=== PATIENT | female | born 1930 | race Caucasian/White ===

== ENCOUNTER → 2016-07-16 | Outpatient (CLI) | payer MEDICARE, OTHER ==
[~2016-07-16] MED LIST: AMLO5TAB2 PO; ASPI1TAB69 PO; ASPI81TA11 PO; ATOR10TA15 PO; AUGM500T7 PO; BIOT1000 PO; CALC1TAB30 PO; CALC1TAB87 PO; CEFT500T3 PO; CICL8KIT2 TOPICAL; CIPR-9 PO; CYMB60CA PO; ESTR0.62 VAGINAL; FERR324T4 PO; FERR325T PO; FISH1000 PO; GABA600T PO; GLIM4TAB PO; LANTUS2P SQ; LATA0.002 EACH EYE; LEVEMIR SQ; MEDR4PAK PO; META0.52 PO; METF500T PO; METO100T PO; METR1GEL TOPICAL; MIRA3350 PO; MULTTAB67 PO; OMEP20TA PO; ORPH100T99 PO; PHEN0.4T PO; PREG25 PO; RAMI5CAP PO; REST0.05 EACH EYE; SITA1TAB2 PO; SYMB160A INH; SYST0.4D2 EACH EYE; TRAM50TA PO; VENTAER INH; VITA200C3 PO; VITA400C2 PO; VITATAB11 PO
[2016-07-16 13:48] LABS: AUTOMATED NEUTROPHIL # 7.8 TH/MM3 (1.8-7.7); BASOPHIL # 0.1 TH/MM3 (0-0.2); EOSINOPHIL # 0.2 TH/MM3 (0-0.4); EOSINOPHIL % 2.2 % (0.0-4.0); HEMATOCRIT 41.5 % (35.0-46.0); HEMO FLAGS DIFF FINAL; LYMPH % 18.5 % (9.0-44.0); LYMPHOCYTE # 2.1 TH/MM3 (1.0-4.8); MEAN CELL VOLUME 88.6 FL (80.0-100.0); MEAN CORPUSCULAR HEMOGLOBIN 29.5 PG (27.0-34.0); MEAN CORPUSCULAR HGB CONC 33.3 % (32.0-36.0); MONO % 8.4 % (0.0-8.0); NEUT % 69.9 % (16.0-70.0); PLATELET COUNT 385 TH/MM3 (150-450); RED BLOOD COUNT 4.68 MIL/MM3 (4.00-5.30); RED CELL DISTRIBUTION WIDTH 13.7 % (11.6-17.2); WHITE BLOOD COUNT 11.1 TH/MM3 (4.0-11.0)
[2016-07-16 13:49] LABS: BACTERIA, URINE FEW /hpf; BLOOD, URINE LARGE (NEG); GLUCOSE,URINE 300 mg/dL (NEG); KETONE, URINE NEG (NEG); NITRITE,URINE NEG (NEG); PH, URINE 5.5 (5.0-8.5); SQUAMOUS EPITHELIAL CELL URINE 3 /hpf (0-5); URINE COLOR DARK-YELLOW (YELLW/STRAW)
[2016-07-16 13:52] LABS: COMMENT (UR) CULTURE INDICATED; CULTURE IF INDICATED CULTURE INDICATED
--- NOTE | 2016-07-17 16:08 | EKG ---
Date Performed: 07/16/2016 Time Performed: 13:09:30 PTAGE: 86 years EKG: Low voltage in precordial leads. Vertical QRS axis. Minor ST-T wave changes. When compared to previous tracing, no significant change. Abnormal ECG PREVIOUS TRACING : 05/17/2016 14.28.07 DOCTOR: Dariusz Covington Interpretating Date/Time 07/17/2016 16:07:01
== END ==
LOC: CPRE 12:43
PROVIDERS: ATTEND Pain Medicine Interventional Pain Medicine
DX: Z01.810 Encounter for preprocedural cardiovascular examination (principal); Z01.812 Encounter for preprocedural laboratory examination; M54.5 Low back pain; R94.31 Abnormal electrocardiogram [ECG] [EKG]; B37.89 Other sites of candidiasis; R82.90 Unspecified abnormal findings in urine
CPT/HCPCS: 36415; 81001; 84132; 85025; 86403; 87077; 87086; 87186; 93005; J3010

== ENCOUNTER → 2016-07-23 | Day surgery (SDC) | payer MEDICARE, OTHER ==
[~2016-07-23] VITALS: Ht 162.6 cm; Wt 79.8 kg
[~2016-07-23] MED LIST changes: +BUPIVACAINE/EPINEPHRINE 0.5% PF 30 ML VIAL ONE; -CEFT500T3 PO; +LACTATED RINGER'S 1000 ML INJ 1,000 ML ONE; +MIDAZOLAM HCL 2 MG/2 ML VIAL ONE; +PROPOFOL 200 MG/20 ML AMP IV ONE; +SODIUM CHLORIDE 0.9% INJ 100 ML ONE; +SODIUM CHLORIDE 0.9% INJ 50 ML ONE; +VANCOMYCIN 500 MG VIAL ONE; +ceFAZolin INJ 1,000 MG VIAL ONE
[2016-07-23 11:40] VITALS: BP 124/71; PULSE 66; RESP 16; TEMP 97.8; O2SAT 94
[2016-07-23 15:30] VITALS: BP 138/68; PULSE 78; RESP 18; TEMP 97.6; O2SAT 96
--- NOTE | 2016-07-24 13:14 | MP ---
cc: KRYS POTTER M.D. DATE OF SURGERY 07/23/2016 DATE OF 1930 PROCEDURE Replacement of [employer] dual-channel non-rechargeable pulse generator. PREPROCEDURE NOTE End of battery life of Medtronics dual-channel non-rechargeable pulse generator POSTPROCEDURE End of battery life of [employer]tronics dual-channel non-rechargeable pulse generator PROCEDURE NOTE IV was started in the holding area, the patient was given IV antibiotics. taken to the operating room, placed in the supine position, sedated by anesthesia. Her abdomen was prepped with Chloraprep and draped with sterile drapes. The skin over the implanted pulse generator in the left subcostal area was infiltrated with 0.5% Marcaine containing epinephrine. Then an incision was made over the pulse generator. Sharp and blunt dissection were used to exteriorize the pulse generator, then a new [employer]tronics dual-channel non-rechargeable pulse generator was connected to the two leads after disconnecting them from the old pulse generator. Impedance was checked at the bedside and found to be appropriate on all electrodes. The subcutaneous pocket was irrigated with Betadine solution, then an Ethibond suture was placed through the underlying fascia and the new pulse generator was placed in the subcutaneous pocket with the redundant lead wires behind the pulse generator and the painted side of the pulse generator facing the skin and it was sutured in place with the 2-0 Ethibond suture. Then the incision was closed with 3-0 Monocryl in the subcuticular tissue and 3-0 nylon on the skin. The incision was covered with sterile adhesive dressings and the patient was taken to the recovery room with stable vital signs neurologically intact. WMD BONI Ellis/HERLINDA /2:25 PM /1:05 PM
== END | disposition home or self-care (01) ==
LOC: CSDC 11:13
PROVIDERS: ATTEND Pain Medicine Interventional Pain Medicine
DX: T85.193A Other mechanical complication of implanted electronic neurostimulator, generator, initial encounter (principal); M54.5 Low back pain; I10 Essential (primary) hypertension; J44.9 Chronic obstructive pulmonary disease, unspecified; E11.9 Type 2 diabetes mellitus without complications
CPT/HCPCS: 00300; 63685; C1767; J0690; J2250; J3370; J7120

== ENCOUNTER 2016-10-07 07:57 | Emergency (ER) | payer MEDICARE ==
[~2016-10-07 07:57] MED LIST changes: -ASPI81TA11 PO; -AUGM500T7 PO; -BUPIVACAINE/EPINEPHRINE 0.5% PF 30 ML VIAL ONE; -CALC1TAB87 PO; -CICL8KIT2 TOPICAL; -CIPR-9 PO; -FERR324T4 PO; -LACTATED RINGER'S 1000 ML INJ 1,000 ML ONE; -LANTUS2P SQ; -LEVEMIR SQ; -MEDR4PAK PO; -METR1GEL TOPICAL; -MIDAZOLAM HCL 2 MG/2 ML VIAL ONE; -ORPH100T99 PO; -PHEN0.4T PO; -PROPOFOL 200 MG/20 ML AMP IV ONE; -SODIUM CHLORIDE 0.9% INJ 100 ML ONE; -SODIUM CHLORIDE 0.9% INJ 50 ML ONE; -TRAM50TA PO; -VANCOMYCIN 500 MG VIAL ONE; -VITA200C3 PO; -ceFAZolin INJ 1,000 MG VIAL ONE
[2016-10-07 08:05] VITALS: BP 218/103; PULSE 88; RESP 17; TEMP 98.5; O2SAT 94
--- NOTE | 2016-10-07 08:12 | PD ---
HPI Chief Complaint: Back/ Neck Pain or Injury Time Seen by Provider: 08:01 Travel History International Travel<30 days: No Contact w/Intl Traveler<30days: No Traveled to known affect area: No History of Present Illness HPI The patient is a 86-year-old female who presents to the emergency department via EMS for sciatica. The patient states she has a history of chronic back pain with previous laminectomy and a stimulator placed in the abdominal cavity for the lower back. The patient undergoes steroid injections by her pain interventional's, Dr. Campos. The patient has a history of right sided sciatica, has been progressing over the last 3 weeks, she was unable to be evaluated by Dr. Campos secondary to a recent UTI, is unable to have a steroid injection until later this month. The patient's pain is located over the right gluteal area, radiates down the right leg to the posterior aspect of the right knee and into the right groin. The patient denies any trauma or falls. The patient is able to bear weight, however, states that certain movements exacerbate her pain. The patient states she is unable to get relief with pain medications at home, leave, therefore, called EMS. She denies any current urinary incontinence, does complain of mild dysuria. She denies any acute weakness the right lower extremity denies any numbness or tingling to the right lower extremity. Symptoms are moderate, similar to previous pain secondary to sciatica, and minimally alleviated with Aleve. PFSH Past Medical History Hx Anticoagulant Therapy: Yes (ASPRIN ) Arthritis: Yes Asthma: Yes Blood Disorders: Yes (iron low) Anxiety: No Depression: No Heart Rhythm Problems: Yes (tachycardia) Cancer: Yes Cardiovascular Problems: Yes (htn) High Cholesterol: Yes Chemotherapy: No Chest Pain: Yes Congestive Heart Failure: No COPD: Yes Coronary Artery Disease: Yes Diabetes: Yes Diminished Hearing: No Endocrine: Yes Gastrointestinal Disorders: Yes (gerd) GERD: Yes (GERD) Glaucoma: Yes Genitourinary: Yes (frequency and leakage-botox inj in bladder this week) Hepatitis: No Hiatal Hernia: Yes Hypertension: Yes Immune Disorder: No Implanted Vascular Access Dvce: Yes Musculoskeletal: Yes (chronic back pain) Neurologic: Yes (neuropathy hands and ft) Psychiatric: No Reproductive: No Respiratory: Yes (COPD) Integumentary: Yes (HX OF SHINGLES FOREHEAD) Radiation Therapy: No Sleep Apnea: Yes Thyroid Disease: No (yrs ago on med but couldn't tolerate) Menopausal: Yes Past Surgical History Abdominal Surgery: Yes (APPY) AICD: No Appendectomy: Yes Body Medical Devices: neurostimulator along spinal cord, BLADDER STIMULATOR, STENT Cardiac Surgery: No Ear Surgery: Yes (HERNIATED EAR DRUM REPAIR 1991 ) Endocrine Surgery: No Eye Surgery: No Genitourinary Surgery: Yes (RIGHT KIDNEY SUSPENSION, BLADDER STIMULATOR) Gynecologic Surgery: Yes (D & C X 2) Joint Replacement: No Neurologic Surgery: Yes (LAMINECTOMY AND SPINAL FUSIONS X 2 2008 ) Oral Surgery: Yes (NASAL SURGERY) Pacemaker: No Thoracic Surgery: No Other Surgery: Yes (right kidney suspension, compound nose fracture repain, spinal fusion /lami) Social History Alcohol Use: Yes (ONCE A WEEK ) Tobacco Use: No Substance Use: No Allergies-Medications (Allergen,Severity, Reaction): Coded Allergies: Darvocet-N 100 (Verified Allergy, Severe, Nausea/Vomiting, 10/07/16) Morphine (Verified Allergy, Severe, Itching, 10/07/16) Tramadol (Verified Allergy, Severe, Nausea/Vomiting, 10/07/16) Hydrocodone (Verified Allergy, Intermediate, NAUSEA, 10/07/16) Sulfa (Verified Allergy, Intermediate, RASH, 10/07/16) Hydromorphone (Verified Allergy, Mild, Itching, 10/07/16) Propoxyphene (Verified Allergy, Mild, Nausea/Vomiting, 10/07/16) Reported Meds & Prescriptions Reported Meds & Active Scripts Active Reported Januvia (Sitagliptin Phosphate) 100 Mg Tab 100 Mg PO DAILY Lyrica (Pregabalin) 25 Mg Cap 25 Mg PO DAILY Omeprazole 20 Mg Tab 20 Mg PO DAILY Ferrous Sulfate 325 Mg Tab 325 Mg PO BID Biotin 1,000 Mcg Tab 5,000 Mcg PO DAILY Aspirin 81 Mg Tabdr 81 Mg PO DAILY Miralax (Polyethylene Glycol 3350) 1 Pow Pow 17 Gm PO DIRECTED PRN Metamucil (Psyllium) 520 Mg Cap 520 Mg PO DIRECTED PRN Vitamin B Complex (B-Complex Vitamins) 1 Tab 1 Tab PO DAILY Calcium 600 + D (Calcium Carbonate-Cholecalciferol) 600-200 Mg-Unit Tab 1 Tab PO DAILY Vitamin E 400 Unit Cap 400 Units PO DAILY Fish Oil ([place]-3 Fatty Acids) 1,000 Mg Cap 2,000 Mg PO BID Multiple Vitamin 1 Tab 1 Tab PO DAILY Symbicort Inh (Budesonide/Formoterol Fumarate) 160-4.5 Mcg/Act Aero 1 Puff INH BID Ventolin Hfa 18 GM Inh (Albuterol Sulfate) 90 Mcg/Act Aer 1 Puff INH PRN PRN Amlodipine (Amlodipine Besylate) 5 Mg Tab 5 Mg PO DAILY Atorvastatin (Atorvastatin Calcium) 10 Mg Tab 10 Mg PO HS Glimepiride 4 Mg Tab 4 Mg PO BID Take with breakfast or first main meal Metformin (Metformin HCl) 500 Mg Tab 1,000 Mg PO BID With meals Metoprolol Tartrate 100 Mg Tab 100 Mg PO DAILY Ramipril 5 Mg Cap 5 Mg PO BID Cymbalta DR (Duloxetine HCl) 60 Mg Capdr 60 Mg PO DAILY Gabapentin 600 Mg Tab 600 Mg PO QID Systane Gel Opth (Polyethylene Glycol-Propylene Opth) 0.4-0.3% Drops 1 Drop EACH EYE DIRECTED PRN Restasis Opth Drops (Cyclosporine Opth Drops) 0.05% Emul 1 Drop EACH EYE BID Latanoprost Opth Drops (Latanoprost) 0.005% Drops 1 Drop EACH EYE HS Refrigerate until opened. Review of Systems Except as stated in HPI: all other systems reviewed are Neg General / Constitutional: No: Fever Cardiovascular: No: Chest Pain or Discomfort Respiratory: No: Shortness of Breath Gastrointestinal: No: Nausea, Vomiting, Abdominal Pain Genitourinary: Positive: Dysuria, No: Incontinence Musculoskeletal: Positive: Pain Neurologic: No: Paresthesia, Sensory Disturbance Physical Exam Narrative GENERAL: Awake, alert, very pleasant 86 year-old female who appears her stated age and is in no acute respiratory distress. SKIN: Focused skin assessment warm/dry. HEAD: Atraumatic. Normocephalic. EYES: Pupils equal and round. No scleral icterus. No injection or drainage. ENT: No nasal bleeding or discharge. Mucous membranes pink and moist. NECK: Trachea midline. No JVD. CARDIOVASCULAR: Regular rate and rhythm. No murmur appreciated. RESPIRATORY: No accessory muscle use. Clear to auscultation. Breath sounds equal bilaterally. GASTROINTESTINAL: Abdomen soft, non-tender, nondistended. Pain stimulator located left lower abdomen. Back: No tenderness of the mid thoracic or lumbar vertebrae. Tenderness located over the right gluteal region, deep palpation reproduces symptoms. MUSCULOSKELETAL: No obvious deformities. No clubbing. No cyanosis. No edema. Positive straight leg on the right at 60. Internal/external rotation hip minimally aggravates pain. No leg length discrepancy noted. NEUROLOGICAL: Awake and alert. No obvious cranial nerve deficits. Motor grossly within normal limits. Normal speech. Sensation is intact the right lower extremity. PSYCHIATRIC: Appropriate mood and affect; insight and judgment normal. Data Data Last Documented VS Vital Signs Date Time Temp Pulse Resp B/P Pulse Ox O2 Delivery O2 Flow Rate FiO2 10/07/16 08:50 85 17 186/88 95 Room Air 10/07/16 08:05 98.5 Orders Urinalysis - C+S If Indicated (10/07/16 08:08) Morphine Inj (Morphine Inj) (10/07/16 08:15) Diphenhydramine Inj (Benadryl Inj) (10/07/16 08:15) Ketorolac Inj (Toradol Inj) (10/07/16 08:15) Sodium Chlorid 0.9% 500 Ml Inj (Ns 500 M (10/07/16 08:15) Urine Culture (10/07/16 08:15) Ceftriaxone Inj (Rocephin Inj) (10/07/16 08:45) Labs Laboratory Tests Test 10/07/16 08:15 Urine Color LIGHT-YELLOW Urine Turbidity HAZY Urine pH 8.0 Urine Specific [place] 1.009 Urine Protein TRACE mg/dL Urine Glucose (UA) 1000 mg/dL Urine Ketones NEG mg/dL Urine Occult Blood SMALL Urine Nitrite NEG Urine Bilirubin NEG Urine Urobilinogen LESS THAN 2.0 MG/DL Urine Leukocyte Esterase LARGE Urine RBC 27 /hpf Urine WBC 107 /hpf Urine Squamous Epithelial 3 /hpf Cells Urine Transitional Epithelial 1 /hpf Cells Urine Renal Epithelial Cells <1 /hpf Urine Bacteria OCC /hpf Microscopic Urinalysis Comment CULTURE INDICATED MDM Medical Decision Making Medical Screen Exam Complete: Yes Emergency Medical Condition: Yes Medical Record Reviewed: Yes Interpretation(s) Laboratory Tests Test 10/07/16 08:15 Urine Color LIGHT-YELLOW Urine Turbidity HAZY Urine pH 8.0 Urine Specific [place] 1.009 Urine Protein TRACE mg/dL Urine Glucose (UA) 1000 mg/dL Urine Ketones NEG mg/dL Urine Occult Blood SMALL Urine Nitrite NEG Urine Bilirubin NEG Urine Urobilinogen LESS THAN 2.0 MG/DL Urine Leukocyte Esterase LARGE Urine RBC 27 /hpf Urine WBC 107 /hpf Urine Squamous Epithelial 3 /hpf Cells Urine Transitional Epithelial 1 /hpf Cells Urine Renal Epithelial Cells <1 /hpf Urine Bacteria OCC /hpf Microscopic Urinalysis Comment CULTURE INDICATED Differential Diagnosis Differential diagnosis includes sciatica, chronic pain, radiculopathy, lumbar stenosis, AAA, claudication, pelvic fracture, hip fracture. Narrative Course IV was established and the patient was placed on cardiac telemetry monitoring and continuous pulse oximetry monitoring. The patient states she is not allergic to morphine, has had morphine with previous surgeries, however, has itching with Dilaudid. After discussion with the patient was agreed she would receive morphine, Benadryl, and Toradol intravenously with IV fluids. UA was sent to lab. The patient's UA is positive, therefore, the patient was administered Rocephin 1 g intravenously. The patient was reevaluated at 9 AM, her pain is significantly improved. I will discharge the patient home on a Medrol Dosepak and muscle relaxers with Cipro twice a day for 7 days. The patient is advised to follow-up with her primary physician and return if symptoms worsen or progress. Diagnosis Primary Impression: Sciatica Qualified Code: M54.31 - Sciatica of right side Additional Impression: Urinary tract infection Qualified Code: N30.00 - Acute cystitis without hematuria Patient Instructions: General Instructions Additional Instructions: Medications as directed. Follow-up with your primary physician and pain interventional was. Do not take Aleve while you are on the Medrol Dosepak. Return if symptoms worsen or progress. Med/Other Pt SpecificInfo: Prescription(s) given Scripts Orphenadrine ER 12 HR (Orphenadrine CR)100 Mg [id number] Mg PO Q12HR #20 TAB Ref 0 Prov:Seth Grant MD 10/07/16 Ciprofloxacin (Cipro)500 Mg [id number] Mg PO BID 7 Days Ref 0 Prov:Seth Grant MD 10/07/16 Methylprednisolone Dosepak (Medrol Dosepak)4 Mg Dspk4 Mg PO DIRECTED #1 DSPK Ref 0 Per Pharmacist direction Prov:Seth Grant MD 10/07/16 Disposition: DISCHARGE HOME Condition: Stable Seth Grant MD October 07, 2016 08:12
[2016-10-07] MEDS ORDERED: MORPHINE SULFATE 4 MG/ML INJ IV PUSH ONE (08:15)
[2016-10-07] MEDS ORDERED: diphenhydrAMINE HCL 50 MG/ML VIAL IV PUSH ONE (08:15)
[2016-10-07] MEDS ORDERED: KETOROLAC TROMETHAMINE 30 MG/ML (IVP) VIAL IV PUSH ONE (08:15)
[2016-10-07] MEDS ORDERED: SODIUM CHLORID 0.9% 500 ML INJ 500 ML IV ONE (08:15)
[2016-10-07 08:43] LABS: BACTERIA, URINE OCC /hpf; BLOOD, URINE SMALL (NEG); COMMENT (UR) CULTURE INDICATED; CULTURE IF INDICATED CULTURE INDICATED; GLUCOSE,URINE 1000 mg/dL (NEG); KETONE, URINE NEG (NEG); NITRITE,URINE NEG (NEG); RENAL EPITHELIAL CELLS <1 /hpf; SQUAMOUS EPITHELIAL CELL URINE 3 /hpf (0-5); TRANSITIONAL EPI CELLS, URINE 1 /hpf; URINE COLOR LIGHT-YELLOW (YELLW/STRAW)
[2016-10-07] MEDS ORDERED: cefTRIAXone INJ 1,000 MG in SODIUM CHLORIDE 0.9% INJ 100 ML IV ONE (08:45)
[2016-10-07 08:50] VITALS: BP 186/88; PULSE 85; RESP 17; O2SAT 95
[2016-10-07] MEDS ORDERED: CIPR-9 PO (09:11)
[2016-10-07] MEDS ORDERED: MEDR4PAK PO (09:11)
[2016-10-07] MEDS ORDERED: ORPH100T99 PO (09:11)
[2016-10-07 09:49] VITALS: RESP 17
[2016-10-28] MEDS ORDERED: TRAM50TA PO (09:15)
[2016-10-28] MEDS ORDERED: LEVEMIR SQ (09:15)
[2016-12-03] MEDS ORDERED: ASPI81TA11 PO (11:33)
[2016-12-03] MEDS ORDERED: FERR324T4 PO (11:33)
[2016-12-03] MEDS ORDERED: VITA200C3 PO (11:33)
[2016-12-03] MEDS ORDERED: CALC1TAB87 PO (11:34)
[2016-12-03] MEDS ORDERED: CICL8KIT2 TOPICAL (14:15)
[2016-12-03] MEDS ORDERED: AUGM500T7 PO (14:15)
[2016-12-03] MEDS ORDERED: METR1GEL TOPICAL (14:15)
[2016-12-03] MEDS ORDERED: ESTR0.62 VAGINAL (14:15)
[2016-12-03] MEDS ORDERED: FISH1000 PO (14:15)
[2016-12-03] MEDS ORDERED: LANTUS2P SQ (14:15)
== END 2016-10-07 10:18 | disposition home or self-care (01) ==
LOC: NEPE 07:57
DX: M54.31 Sciatica, right side (principal); N30.00 Acute cystitis without hematuria; B96.20 Unspecified Escherichia coli [E. coli] as the cause of diseases classified elsewhere; E11.9 Type 2 diabetes mellitus without complications; I10 Essential (primary) hypertension; E78.00 Pure hypercholesterolemia, unspecified; Z79.82 Long term (current) use of aspirin; Z79.84 Long term (current) use of oral hypoglycemic drugs; Z87.39 Personal history of other diseases of the musculoskeletal system and connective tissue; Z87.09 Personal history of other diseases of the respiratory system; Z86.2 Personal history of diseases of the blood and blood-forming organs and certain disorders involving the immune mechanism; Z86.79 Personal history of other diseases of the circulatory system; Z87.19 Personal history of other diseases of the digestive system; Z87.448 Personal history of other diseases of urinary system; Z86.69 Personal history of other diseases of the nervous system and sense organs
CPT/HCPCS: 81001; 87077; 87086; 87186; 96361; 96365; 96375; 99283; J0696; J1200; J1885; J2270; J7040

== ENCOUNTER 2016-10-18 19:39 | Emergency (ER) | payer MEDICARE ==
[~2016-10-18] VITALS: Ht 165.1 cm; Wt 83.0 kg
[~2016-10-18 19:39] MED LIST changes: +CIPR-9 PO; -ESTR0.62 VAGINAL; +MEDR4PAK PO; +ORPH100T99 PO
[2016-10-18 19:43] VITALS: BP 148/87; PULSE 80; RESP 18; TEMP 97.6; O2SAT 97
--- NOTE | 2016-10-18 20:27 | PD ---
HPI Chief Complaint: Pain: Acute or Chronic Time Seen by Provider: 20:24 Travel History International Travel<30 days: No Contact w/Intl Traveler<30days: No Traveled to known affect area: No History of Present Illness HPI Patient comes in complaining of sciatica flareup began around 1800 today when she woke from a nap. Patient describes pain as a burning pain in her right hip and radiates distally. Patient states feels like her normal sciatic pain. Patient states she's scheduled to have an epidural injection done by her pain management doctor on the of this month. Patient states is the same pain that she's had previously was seen here 2 weeks ago for. Patient states she took previously medication as prescribed and UTI symptoms cleared up and her sciatica was being controlled until today. Patient denies any fevers, chest pain, shortness of breath, abdominal pain, loss or change of bowel or bladder, recent falls, or any new numbness or tingling anywhere. Patient reports she does have neuropathy. Patient normally ambulates with a walker or a cane. PFSH Past Medical History Hx Anticoagulant Therapy: Yes (ASPRIN ) Anemia: Yes Arthritis: Yes Asthma: Yes Blood Disorders: Yes (iron low) Anxiety: No Depression: No Heart Rhythm Problems: Yes (tachycardia) Cancer: Yes Cardiovascular Problems: Yes (htn) High Cholesterol: Yes Chemotherapy: No Chest Pain: Yes Congestive Heart Failure: No COPD: Yes Coronary Artery Disease: Yes Diabetes: Yes Patient Takes Glucophage: Yes (10/18/16 ) Diminished Hearing: Yes (HEARING AIDS) Endocrine: Yes Gastrointestinal Disorders: Yes (gerd) GERD: Yes Glaucoma: Yes Genitourinary: Yes (frequency and leakage) Hepatitis: No Hiatal Hernia: Yes Hypertension: Yes Immune Disorder: No Implanted Vascular Access Dvce: Yes (PAIN STIMULATOR, BLADDER STIMULATOR) Medical other: Yes (ENDOSCOPY SUPPORT SPECIALIST BACK PROBLEMS ) Musculoskeletal: Yes (chronic back pain) Neurologic: Yes (neuropathy hands and ft) Psychiatric: No Reproductive: No Respiratory: Yes (COPD) Integumentary: Yes (HX OF SHINGLES FOREHEAD) Radiation Therapy: No Shingles: Yes Sleep Apnea: Yes Thyroid Disease: Yes (yrs ago on med but couldn't tolerate) Tetanus Vaccination: < 5 Years Influenza Vaccination: Yes Menopausal: Yes Past Surgical History Abdominal Surgery: Yes (APPY) AICD: No Appendectomy: Yes Body Medical Devices: neurostimulator along spinal cord, BLADDER STIMULATOR, STENT Cardiac Surgery: No Ear Surgery: Yes (HERNIATED EAR DRUM REPAIR 1991 ) Endocrine Surgery: No Eye Surgery: No Genitourinary Surgery: Yes (RIGHT KIDNEY SUSPENSION, BLADDER STIMULATOR) Gynecologic Surgery: Yes (D & C X 2) Joint Replacement: No Neurologic Surgery: Yes (LAMINECTOMY AND SPINAL FUSIONS X 2 2008 ) Oral Surgery: Yes (NASAL SURGERY) Pacemaker: No Thoracic Surgery: No Other Surgery: Yes (right kidney suspension, compound nose fracture repair, spinal fusion /lami) Social History Alcohol Use: Yes (OCCASSIONALLY) Tobacco Use: No Substance Use: No Allergies-Medications (Allergen,Severity, Reaction): Coded Allergies: Darvocet-N 100 (Verified Allergy, Severe, Nausea/Vomiting, 10/18/16) Tramadol (Verified Allergy, Severe, Nausea/Vomiting, 10/18/16) Hydrocodone (Verified Allergy, Intermediate, NAUSEA, 10/18/16) Sulfa (Verified Allergy, Intermediate, RASH, 10/18/16) Hydromorphone (Verified Allergy, Mild, Itching, 10/18/16) Propoxyphene (Verified Allergy, Mild, Nausea/Vomiting, 10/18/16) Reported Meds & Prescriptions Reported Meds & Active Scripts Active Medrol Dosepak (Methylprednisolone) 4 Mg Dspk 4 Mg PO DIRECTED Per Pharmacist direction Orphenadrine CR (Orphenadrine Citrate) 100 Mg Tab 100 Mg PO Q12HR Cipro (Ciprofloxacin HCl) 500 Mg Tab 500 Mg PO BID 7 Days Reported Januvia (Sitagliptin Phosphate) 100 Mg Tab 100 Mg PO DAILY Lyrica (Pregabalin) 25 Mg Cap 25 Mg PO DAILY Omeprazole 20 Mg Tab 20 Mg PO DAILY Ferrous Sulfate 325 Mg Tab 325 Mg PO BID Biotin 1,000 Mcg Tab 5,000 Mcg PO DAILY Aspirin 81 Mg Tabdr 81 Mg PO DAILY Miralax (Polyethylene Glycol 3350) 1 Pow Pow 17 Gm PO DIRECTED PRN Metamucil (Psyllium) 520 Mg Cap 520 Mg PO DIRECTED PRN Vitamin B Complex (B-Complex Vitamins) 1 Tab 1 Tab PO DAILY Calcium 600 + D (Calcium Carbonate-Cholecalciferol) 600-200 Mg-Unit Tab 1 Tab PO DAILY Vitamin E 400 Unit Cap 400 Units PO DAILY Fish Oil ([place]-3 Fatty Acids) 1,000 Mg Cap 2,000 Mg PO BID Multiple Vitamin 1 Tab 1 Tab PO DAILY Symbicort Inh (Budesonide/Formoterol Fumarate) 160-4.5 Mcg/Act Aero 1 Puff INH BID Ventolin Hfa 18 GM Inh (Albuterol Sulfate) 90 Mcg/Act Aer 1 Puff INH PRN PRN Amlodipine (Amlodipine Besylate) 5 Mg Tab 5 Mg PO DAILY Atorvastatin (Atorvastatin Calcium) 10 Mg Tab 10 Mg PO HS Glimepiride 4 Mg Tab 4 Mg PO BID Take with breakfast or first main meal Metformin (Metformin HCl) 500 Mg Tab 1,000 Mg PO BID With meals Metoprolol Tartrate 100 Mg Tab 100 Mg PO DAILY Ramipril 5 Mg Cap 5 Mg PO BID Cymbalta DR (Duloxetine HCl) 60 Mg Capdr 60 Mg PO DAILY Gabapentin 600 Mg Tab 600 Mg PO QID Systane Gel Opth (Polyethylene Glycol-Propylene Opth) 0.4-0.3% Drops 1 Drop EACH EYE DIRECTED PRN Restasis Opth 0.05% (Cyclosporine Opth 0.05%) 0.05% Emul 1 Drop EACH EYE BID Latanoprost Opth Drops (Latanoprost) 0.005% Drops 1 Drop EACH EYE HS Refrigerate until opened. Review of Systems Except as stated in HPI: all other systems reviewed are Neg Physical Exam Narrative GENERAL: Well-developed, overly nourished, in no acute distress, and non-ill appearing. SKIN: Focused skin assessment warm and dry. HEAD: Atraumatic. Normocephalic. EYES: Pupils equal and round. EOMI. No scleral icterus. No injection or drainage. ENT: No nasal bleeding or discharge. Mucous membranes pink and moist. NECK: Trachea midline. Supple. No nuclear rigidity. CARDIOVASCULAR: Dorsal pulses 2+ contact, equal bilaterally. Capillary refill less than 2 seconds. RESPIRATORY: No accessory muscle use. No respiratory distress. GASTROINTESTINAL: Abdomen soft, non-tender, nondistended. Hepatic and splenic margins not palpable. No guarding. No pulsatile mass. MUSCULOSKELETAL: No obvious deformities. No clubbing. No cyanosis. No edema. Full range of motion. No tenderness crepitus over midline lumbar spine. There is well-healed surgical scar noted from previous surgery. Hip: FROM and equal BL with passive flexion, extension, Abduction, Adduction, and internal/ external rotation. Pulses equal BL distal to injury. Capillary refill less than 2 seconds distal to injury and equal BL. FROM distal to injury and equal BL. Strength distal to injury equal BL. NV intact distal to injury and equal BL. Plantar flexion and dorsal flexion equal BL. Dorsal pulses equal BL. Sensation equal BL 1st web space. Patient reports worsening of pain with certain movement of right hip. NEUROLOGICAL: Awake and alert. No obvious cranial nerve deficits. Motor grossly within normal limits. Normal speech. PSYCHIATRIC: Appropriate mood and affect; insight and judgment normal. Data Data Last Documented VS Vital Signs Date Time Temp Pulse Resp B/P Pulse Ox O2 Delivery O2 Flow Rate FiO2 10/18/16 19:43 97.6 80 18 148/87 97 Orders Ketorolac Inj (Toradol Inj) (10/18/16 20:30) Morphine Inj (Morphine Inj) (10/18/16 20:30) Diphenhydramine (Benadryl) (10/18/16 20:30) Morphine Inj (Morphine Inj) (10/18/16 21:15) MDM Medical Decision Making Medical Screen Exam Complete: Yes Emergency Medical Condition: Yes Differential Diagnosis Sciatica, muscle strain, osteoarthritis, other Narrative Course The patient presented complaining of sciatica flareup. There was no history of recent fall or trauma. There was no evidence to support genitourinary etiology. There is also no evidence to suggest vascular pathology such as AAA dissection. No fevers or other evidence to suspect infectious processes, abscess, osteomyelitis etc. The patients neurological exam is normal with normal motor and sensory. There is no saddle paresthesias reported and no bowel or bladder incontinence or retention. I suspect the pain is mechanical in nature with sciatica. Clinical suspicion, plan of care and management was discussed with the patient. The patient was instructed to follow up with their health care provider. The patient was also instructed to return if the pain worsened, changed, or developed weakness or bowel or bladder trouble. The patient agreed with plan. Patient in no obvious distress upon re-evaluation. Patient was ambulated prior to discharge with walker assistance. Discussed patient with Dr. Kate, who saw and evaluated patient and is in agreement with plan of care and disposition. Any questions/concerns in reference to patient diagnosis/condition discussed and clarified prior to patient's discharge. Reinforced sheer importance of close follow up with patient's primary physician or primary care clinic. Instructed patient to return to ED immediately, if symptoms return/worsen. Pt showed understanding of above instructions. Further instructions and recommendations were detailed in discharge paperwork. Pt left without difficulty out of ED at discharge. Diagnosis Primary Impression: Sciatica Qualified Code: M54.31 - Sciatica of right side Patient Instructions: General Instructions, Sciatica (ED) Additional Instructions: Follow-up with your primary care physician and/or pain management doctor in 2-3 days for reevaluation. Take all medication as prescribed. Return to the emergency department if symptoms get worse. Med/Other Pt SpecificInfo: Prescription(s) given Scripts Methylprednisolone Dosepak (Medrol Dosepak)4 Mg Dspk4 Mg PO DIRECTED #1 DSPK Ref 0 Per Pharmacist direction Prov:Sharon Kate MD 10/18/16 Disposition: 01 DISCHARGE HOME Condition: Stable Dany Ga October 18, 2016 20:27
[2016-10-18] MEDS ORDERED: MORPHINE SULFATE 4 MG/ML INJ IM ONE (20:30)
[2016-10-18] MEDS ORDERED: KETOROLAC TROMETHAMINE 60 MG/2 ML (IM) VIAL IM ONE (20:30)
[2016-10-18] MEDS ORDERED: diphenhydrAMINE HCL 25 MG CAP PO ONE (20:30)
[2016-10-18] MEDS ORDERED: MORPHINE SULFATE 8 MG/ML INJ IM ONE (21:15)
[2016-10-18] MEDS ORDERED: MEDR4PAK PO (21:53)
--- NOTE | 2016-10-18 21:59 | PD ---
Data Data Last Documented VS Vital Signs Date Time Temp Pulse Resp B/P Pulse Ox O2 Delivery O2 Flow Rate FiO2 10/18/16 19:43 97.6 80 18 148/87 97 Orders Ketorolac Inj (Toradol Inj) (10/18/16 20:30) Morphine Inj (Morphine Inj) (10/18/16 20:30) Diphenhydramine (Benadryl) (10/18/16 20:30) Morphine Inj (Morphine Inj) (10/18/16 21:15) MDM Supervised Visit with XU: Yes Narrative Course I, Dr. Kate, have reviewed the advance practice practioner's documentation and am in agreement, met with the patient face to face, made the diagnosis, and the medical decision making was done by me. *My assessment and Findings: Patient is a 86-year-old female with history of chronic right sided sciatica here with complaint of same. Pain has been increasing over the course of the last several weeks to month. She was seen once in our ER recently and had a urinalysis that was positive for UTI. Treated in finish antibiotics and her symptoms have since resolved. She continues to take her gabapentin, but states it is not helping. She has multiple drug allergies to narcotics limiting our ability to control her pain. Patient states that the pain was so severe today, she was not able ambulate even with her home walker. She has reproducible tenderness to palpation in the right SI joint that radiates down the right leg. Her strength is intact, 4+ out of 5 in the bilateral lower extremities. Positive right straight leg raise. Patient was given analgesics in the emergency department and able to ambulate with assistance of walker. She will be discharged home and encouraged to follow-up with her pain management physician for scheduled epidural injection. Diagnosis Primary Impression: Sciatica Qualified Code: M54.31 - Sciatica of right side Patient Instructions: General Instructions, Sciatica (ED) Departure Forms: Tests/Procedures Additional Instruction: Follow-up with your primary care physician and/or pain management doctor in 2-3 days for reevaluation. Take all medication as prescribed. Return to the emergency department if symptoms get worse. Scripts Methylprednisolone Dosepak (Medrol Dosepak)4 Mg Dspk4 Mg PO DIRECTED #1 DSPK Ref 0 Per Pharmacist direction Prov:Sharon Kate MD 10/18/16 Disposition: 01 DISCHARGE HOME Condition: Stable Sharon Kate MD October 18, 2016 21:59
[2016-10-28] MEDS ORDERED: LEVEMIR SQ (09:15)
[2016-10-28] MEDS ORDERED: TRAM50TA PO (09:15)
[2016-12-03] MEDS ORDERED: FERR324T4 PO (11:33)
[2016-12-03] MEDS ORDERED: ASPI81TA11 PO (11:33)
[2016-12-03] MEDS ORDERED: VITA200C3 PO (11:33)
[2016-12-03] MEDS ORDERED: CALC1TAB87 PO (11:34)
[2016-12-03] MEDS ORDERED: CICL8KIT2 TOPICAL (14:15)
[2016-12-03] MEDS ORDERED: METR1GEL TOPICAL (14:15)
[2016-12-03] MEDS ORDERED: FISH1000 PO (14:15)
[2016-12-03] MEDS ORDERED: AUGM500T7 PO (14:15)
[2016-12-03] MEDS ORDERED: ESTR0.62 VAGINAL (14:15)
[2016-12-03] MEDS ORDERED: LANTUS2P SQ (14:15)
== END 2016-10-18 22:13 | disposition home or self-care (01) ==
LOC: NEPE 19:39
DX: M54.31 Sciatica, right side (principal); E11.9 Type 2 diabetes mellitus without complications; E78.00 Pure hypercholesterolemia, unspecified; M19.90 Unspecified osteoarthritis, unspecified site; J45.909 Unspecified asthma, uncomplicated; I10 Essential (primary) hypertension; J44.9 Chronic obstructive pulmonary disease, unspecified; I25.10 Atherosclerotic heart disease of native coronary artery without angina pectoris; Z79.4 Long term (current) use of insulin; Z79.82 Long term (current) use of aspirin
CPT/HCPCS: 96372; 99283; J1885; J2270

== ENCOUNTER → 2016-12-03 | Outpatient (CLI) | payer MEDICARE ==
[~2016-12-03] MED LIST changes: +ASPI81TA11 PO; +AUGM500T7 PO; +CALC1TAB87 PO; +CICL8KIT2 TOPICAL; -CIPR-9 PO; +ESTR0.62 VAGINAL; +FERR324T4 PO; +LANTUS2P SQ; +LEVEMIR SQ; -MEDR4PAK PO; +METR1GEL TOPICAL; -ORPH100T99 PO; +TRAM50TA PO; +VITA200C3 PO
[2016-12-03 14:15] LABS: BLOOD, URINE LARGE (NEG); KETONE, URINE NEG (NEG); NITRITE,URINE NEG (NEG); PH, URINE 5.5 (5.0-8.5)
[2016-12-03 14:23] LABS: GLUCOSE,URINE 1000 OR GREATER mg/dL (NEG)
[2016-12-03 14:24] LABS: AUTOMATED NEUTROPHIL # 8.7 TH/MM3 (1.8-7.7); BASOPHIL # 0.3 TH/MM3 (0-0.2); BASOPHIL % 2.3 % (0.0-2.0); EOSINOPHIL # 0.3 TH/MM3 (0-0.4); EOSINOPHIL % 2.8 % (0.0-4.0); HEMATOCRIT 44.2 % (35.0-46.0); LYMPHOCYTE # 2.4 TH/MM3 (1.0-4.8); MEAN CELL VOLUME 90.3 FL (80.0-100.0); MEAN CORPUSCULAR HEMOGLOBIN 29.6 PG (27.0-34.0); MEAN CORPUSCULAR HGB CONC 32.8 % (32.0-36.0); MONO % 5.9 % (0.0-8.0); PLATELET COUNT 351 TH/MM3 (150-450); WHITE BLOOD COUNT 12.4 TH/MM3 (4.0-11.0)
[2016-12-03 14:25] LABS: HEMO FLAGS DIFF FINAL
[2016-12-03 14:26] LABS: POTASSIUM 4.3 MEQ/L (3.5-5.1)
[2016-12-03 14:29] LABS: BICARBONATE 27.5 MEQ/L (21.0-32.0)
[2016-12-03 14:31] LABS: METHOD OF COLLECTION CLEAN CATCH; URINE COLOR YELLOW (YELLW/STRAW)
[2016-12-03 14:32] LABS: COMMENT (UR) CULTURE INDICATED; CULTURE IF INDICATED CULTURE INDICATED
== END ==
LOC: PHPRE 13:00
PROVIDERS: ATTEND Pain Medicine Interventional Pain Medicine
DX: Z01.812 Encounter for preprocedural laboratory examination (principal); R82.99 Other abnormal findings in urine
CPT/HCPCS: 36415; 80048; 81001; 85025; 87086

== ENCOUNTER → 2016-12-10 | Day surgery (SDC) | payer MEDICARE ==
[~2016-12-10] VITALS: Ht 162.6 cm; Wt 81.5 kg
[~2016-12-10] MED LIST changes: -ASPI1TAB69 PO; +BACITRACIN TOP OINT 15 GM TUBE ONE; +BUPIVACAINE/EPINEPHRINE 0.5% PF 30 ML VIAL ONE; -CALC1TAB30 PO; +CHLORHEXIDINE GLUCONATE 2 % 1 PACK (2 CLOTHS) TOPICAL PRN; +FAMOTIDINE 20 MG/2 ML VIAL ONE; -FERR325T PO; +INSULIN HUMAN REGULAR 1,000 UNITS/10 ML VIAL SQ PRN; +LACTATED RINGER'S 1000 ML IV PRN; -LEVEMIR SQ; +METOPROLOL TARTRATE 25 MG TAB PO PRN; +MIDAZOLAM HCL 2 MG/2 ML VIAL ONE; +ONDANSETRON HCL 4 MG/2 ML VIAL IV PUSH ONE; +POVIDONE IODINE 5% (ANTISEPSIS KIT) 4 APPLICATIONS EACH NARE PRN; +PROPOFOL 200 MG/20 ML AMP IV ONE; -SITA1TAB2 PO; +SODIUM CHLORID 0.9% 500 ML IV PRN; -SYST0.4D2 EACH EYE; +VANCOMYCIN HCL 500 MG ON-CALL/NS 100 ML IV SCH; -VITA400C2 PO; +ceFAZolin 1,000 MG/NS 100 ML IV SCH
[2016-12-10 11:10] VITALS: BP 135/71; PULSE 59; RESP 18; TEMP 97.7; O2SAT 94
[2016-12-10 14:01] VITALS: PULSE 75
[2016-12-10 15:15] VITALS: BP 117/63; PULSE 73; RESP 14; TEMP 97.2; O2SAT 92
--- NOTE | 2016-12-10 22:35 | MP ---
cc: Isidro POTTER DATE OF SURGERY 12/10/16 PREOPERATIVE DIAGNOSIS Nonhealing wound left flank. POSTPROCEDURE DIAGNOSIS Nonhealing wound left flank. PROCEDURE NOTE IV was started in the holding area. The patient was given IV antibiotics taken to the operating room. Time-out was taken. The patient was given general anesthesia. She was placed in the right lateral decubitus position. All pressure points were checked and padded. Her skin was prepped with Chloraprep and draped with sterile drapes. Then the skin over the 1-/2" wound was infiltrated with 0.5% Marcaine containing epinephrine. Then an incision was made and blunt and sharp dissection took place to reveal the underlying stimulating electrodes and connections between the stimulating electrode and the distal extension wires. Then the position of the connection between the distal extension wires and the stimulating electrodes was placed in a deeper position and covered with overlying tissue. The incision was irrigated with Betadine and closed with 3-0 Monocryl in the subcuticular tissue and 3-0 nylon on the skin. The incisions were covered with sterile adhesive dressings and the patient was taken to the recovery room with stable vital signs neurologically intact. MD BONI Deleon/ /2:03 PM /10:31 PM
== END | disposition home or self-care (01) ==
LOC: PHSDC 10:42
PROVIDERS: ATTEND Pain Medicine Interventional Pain Medicine
DX: Z45.49 Encounter for adjustment and management of other implanted nervous system device (principal); T85.890A Other specified complication of nervous system prosthetic devices, implants and grafts, initial encounter; Z98.1 Arthrodesis status; E11.8 Type 2 diabetes mellitus with unspecified complications
CPT/HCPCS: 01936; 63663; 82948; 87070; 87205; J0690; J2250; J2405; J3010; J3370; J7120

== ENCOUNTER → 2017-02-25 | Day surgery (SDC) | payer MEDICARE ==
[~2017-02-25] VITALS: Ht 162.6 cm; Wt 79.5 kg
[~2017-02-25] MED LIST changes: +AMOX500T PO; -AUGM500T7 PO; +AZEL1SPR2 EACH NARE; -BACITRACIN TOP OINT 15 GM TUBE ONE; +BUPIVACAINE/EPINEPHRINE 0.25% PF 30 ML VIAL ONE; +BUPIVACAINE/EPINEPHRINE 0.5% PF 10 ML VIAL INFIL ONE; -BUPIVACAINE/EPINEPHRINE 0.5% PF 30 ML VIAL ONE; -CICL8KIT2 TOPICAL; -ESTR0.62 VAGINAL; -FAMOTIDINE 20 MG/2 ML VIAL ONE; -MIDAZOLAM HCL 2 MG/2 ML VIAL ONE; +MIRA50TA PO; -ONDANSETRON HCL 4 MG/2 ML VIAL IV PUSH ONE; +OPTI0.5D3 EACH EYE; +SODIUM CHLORIDE 0.9% INJ 50 ML ONE; +ZOLE5P IV
[2017-02-25 15:20] VITALS: BP 126/76; PULSE 66; RESP 16; TEMP 97.6; O2SAT 95
--- NOTE | 2017-02-25 22:41 | MP ---
cc: KRYS POTTER M.D. DATE OF SURGERY 02/25/2017 DATE OF 1930 PROCEDURE 1. Removal of [employer] spinal cord stimulating electrodes x2. 2. Removal of [employer] pulse generator. PREPROCEDURE DIAGNOSIS Nonhealing wound. POSTPROCEDURE DIAGNOSIS Nonhealing wound. PROCEDURE NOTE IV was started in the holding area. The patient was given IV antibiotics, signed the consent form. The surgical site was marked. The patient was taken to the operating room, placed in the right lateral decubitus position, sedated and all pressure points were checked and padded and she was sedated by anesthesia. Then her lumbar area, her left flank and her abdomen was prepped with Chloraprep and draped with sterile drapes. Fluoroscopy was briefly used to visualize the distal extension wires extending around the patient's left flank. Then the area over the pulse generator in the abdomen was infiltrated with 0.5% Marcaine containing epinephrine. An area in the left flank over the distal extension wires was also infiltrated and the area in the lumbar region over the stimulating electrodes was infiltrated with 0.5% Marcaine containing epinephrine. Then incisions were made over each of these three areas. The pulse generator was exteriorized. The distal extension wires were exteriorized and cut. Dissection took place down to the anchoring device for the stimulating electrodes and this was freed from the underlying tissue and removed intact. Then the cultures were taken in the abdominal wound and the lumbar wound and sent for culture and sensitivity and gram stain. The incisions were irrigated with Betadine. The incisions were closed using 3-0 Monocryl in the subcuticular tissue and 3-0 nylon on the skin. The incisions were covered with sterile adhesive dressings and the patient was taken to the recovery room with stable vital signs, neurologically intact. W. MD BONI Powers/JEANNE /2:27 PM /10:31 PM
== END | disposition home or self-care (01) ==
LOC: PHSDC 11:01
PROVIDERS: ATTEND Pain Medicine Interventional Pain Medicine
DX: T85.890A Other specified complication of nervous system prosthetic devices, implants and grafts, initial encounter (principal); B95.2 Enterococcus as the cause of diseases classified elsewhere; I10 Essential (primary) hypertension; E11.9 Type 2 diabetes mellitus without complications
CPT/HCPCS: 00400; 63661; 63688; 82948; 87015; 87070; 87077; 87102; 87116; 87186; 87205; 87206; J0690; J3370; J7120

== ENCOUNTER 2017-06-03 18:48 | Emergency (ER) | payer MEDICARE, OTHER ==
[~2017-06-03 18:48] MED LIST changes: -ASPI81TA11 PO; +ASPI81TA23 PO; -BUPIVACAINE/EPINEPHRINE 0.25% PF 30 ML VIAL ONE; -BUPIVACAINE/EPINEPHRINE 0.5% PF 10 ML VIAL INFIL ONE; -CHLORHEXIDINE GLUCONATE 2 % 1 PACK (2 CLOTHS) TOPICAL PRN; -INSULIN HUMAN REGULAR 1,000 UNITS/10 ML VIAL SQ PRN; -LACTATED RINGER'S 1000 ML IV PRN; -METOPROLOL TARTRATE 25 MG TAB PO PRN; -OMEP20TA PO; +OMEP20TA93 PO; -OPTI0.5D3 EACH EYE; -POVIDONE IODINE 5% (ANTISEPSIS KIT) 4 APPLICATIONS EACH NARE PRN; -PROPOFOL 200 MG/20 ML AMP IV ONE; -SODIUM CHLORID 0.9% 500 ML IV PRN; -SODIUM CHLORIDE 0.9% INJ 50 ML ONE; -TRAM50TA PO; -VANCOMYCIN HCL 500 MG ON-CALL/NS 100 ML IV SCH; -ceFAZolin 1,000 MG/NS 100 ML IV SCH
[2017-06-03 19:02] VITALS: BP 197/89; PULSE 80; RESP 16; TEMP 98.7; O2SAT 94
[2017-06-03] MEDS ORDERED: ONDANSETRON HCL 4 MG/2 ML VIAL IV PUSH ONE (20:15)
[2017-06-03] MEDS ORDERED: AUGM875T3 PO (20:16)
[2017-06-03] MEDS ORDERED: ZOFR4TAB3 SL (20:17)
--- NOTE | 2017-06-03 20:19 | PD ---
HPI Chief Complaint: GI symptoms Time Seen by Provider: 19:50 Travel History International Travel<30 days: No Contact w/Intl Traveler<30days: No Traveled to known affect area: No History of Present Illness HPI 87-year-old female complaining of nausea. Patient states that she has bilateral ear infection with the past month. Patient was seen by her personal physician and given a prescription for Cipro. Patient states that she had persistent draining from the right ear for the past several weeks. Patient states that the ear drainage persistent despite taking the Cipro. Patient took Cipro for 2 weeks. Patient was seen by personal physician again yesterday and advised to use Cipro otic drops and given prescription for Levaquin. Patient took Levaquin yesterday and today and has nausea with the medication. Patient denies any headache. Patient denies any ear pain. Patient denies any chest pain or shortness of breath. Patient denies abdominal pain. Patient denies any focal weakness or numbness of extremity. Patient denies any fever chills. Patient has history of right TM perforation in the past. PFSH Past Medical History Hx Anticoagulant Therapy: Yes (ASPRIN ) Anemia: Yes Arthritis: Yes Asthma: Yes Blood Disorders: Yes (iron low) Anxiety: No Depression: No Heart Rhythm Problems: Yes (tachycardia) Cancer: Yes (SKIN) Cardiovascular Problems: Yes (HEART MURMUR, TACHYCARDIA, CAD) High Cholesterol: Yes Chemotherapy: No Chest Pain: Yes Congestive Heart Failure: No COPD: Yes Coronary Artery Disease: Yes Diabetes: Yes (TYPE 2) Diminished Hearing: Yes (HEARING AIDS) Endocrine: No Gastrointestinal Disorders: Yes (gerd) GERD: Yes Glaucoma: Yes Genitourinary: Yes (INCONTINENCE) Hepatitis: No Hiatal Hernia: Yes Hypertension: Yes Immune Disorder: No Implanted Vascular Access Dvce: Yes (PAIN STIMULATOR, BLADDER STIMULATOR) Musculoskeletal: Yes (chronic back pain, HERNIATED DISCS) Neurologic: Yes (neuropathy hands and ft) Psychiatric: No Reproductive: No Respiratory: Yes (COPD, SLEEP APNEA) Integumentary: Yes (HX OF SHINGLES FOREHEAD) Radiation Therapy: No Shingles: Yes Sleep Apnea: Yes Thyroid Disease: Yes (HX OF IN 1975) Menopausal: Yes Past Surgical History Abdominal Surgery: Yes (APPY) AICD: No Appendectomy: Yes Body Medical Devices: neurostimulator along spinal cord, BLADDER STIMULATOR, CAGES IN BACK Cardiac Surgery: No Ear Surgery: Yes (HERNIATED R EAR DRUM REPAIR 1991 ) Endocrine Surgery: No Eye Surgery: No Genitourinary Surgery: Yes (RIGHT KIDNEY SUSPENSION, BLADDER STIMULATOR) Gynecologic Surgery: Yes (D & C X 2) Joint Replacement: No Neurologic Surgery: Yes (LAMINECTOMY AND SPINAL FUSIONS X 2 2008 ) Oral Surgery: Yes (NASAL SURGERY) Pacemaker: No Thoracic Surgery: No Other Surgery: Yes (right kidney suspension, compound nose fracture repair, spinal fusion /lami) Social History Alcohol Use: Yes (OCCASSIONALLY) Tobacco Use: No Substance Use: No Allergies-Medications (Allergen,Severity, Reaction): Coded Allergies: insulin detemir (Verified Allergy, Severe, Rash, 04/27/17) RASH AND ITCHING Sulfa (Sulfonamide Antibiotics) (Verified Allergy, Intermediate, RASH, ) hydrocodone (Verified Allergy, Intermediate, NAUSEA, 04/27/17) hydromorphone (Verified Allergy, Mild, Itching, 04/27/17) propoxyphene (Verified Allergy, Mild, Nausea/Vomiting, 04/27/17) Reported Meds & Prescriptions Reported Meds & Active Scripts Active Zofran Odt (Ondansetron Odt) 4 Mg Tab 4 Mg SL Q6HR PRN Augmentin (Amoxicillin-Clavulanate) 875-125 Mg Tab 1 Tab PO BID Latanoprost Opth Drops (Latanoprost) 0.005% Drops 1 Drop EACH EYE HS Refrigerate until opened. Reported Azelastine Nasal [place] (Azelastine HCl) 0.1% [place] 2 [place] EACH NARE DAILY PRN Amoxicillin 500 Mg Tab 2,000 Mg PO ONCE TAKE DOSE X 1 FOR DENTAL PROCEDURES Myrbetriq (Mirabegron) 50 Mg Tab 50 Mg PO DAILY Reclast Inj (Zoledronic Acid) 5 Mg/100 Ml Inj 5 Mg IV Q365D Lantus Inj (Insulin Glargine) 1,000 Unit/10 Ml Vial 40 Units SQ DAILY Metrogel Topical (Metronidazole Topical) 1 % Gel 1 Applic TOPICAL BID Calcium 600 with Vitamin D (Calcium Carbonate-Cholecalciferol) 600-400 mg-Unit Tab 1 Tab PO DAILY Ferrous Sulfate DR (Ferrous Sulfate) 324 Mg Tabdr 324 Mg PO BID Vitamin E 200 Unit Cap 400 Units PO DAILY Aspirin EC (Aspirin) 81 Mg Tabdr 81 Mg PO DAILY Lyrica (Pregabalin) 25 Mg Cap 25 Mg PO DAILY Omeprazole 20 Mg Tab 20 Mg PO DAILY Biotin 1,000 Mcg Tab 5,000 Mcg PO DAILY Miralax Powder (Polyethylene Glycol 3350 Powder) 1 Pow Pow 17 Gm PO DIRECTED PRN Metamucil (Psyllium) 520 Mg Cap 520 Mg PO DIRECTED PRN Vitamin B Complex (B-Complex Vitamins) 1 Tab 1 Tab PO DAILY Fish Oil ([place]-3 Fatty Acids) 1,000 Mg Cap 2,000 Mg PO BID Multiple Vitamin 1 Tab 1 Tab PO DAILY Symbicort Inh (Budesonide/Formoterol Fumarate) 160-4.5 Mcg/Act Aero 1 Puff INH BID Ventolin Hfa 18 GM Inh (Albuterol Sulfate) 90 Mcg/Act Aer 1 Puff INH PRN PRN Amlodipine (Amlodipine Besylate) 5 Mg Tab 5 Mg PO DAILY Atorvastatin (Atorvastatin Calcium) 10 Mg Tab 10 Mg PO HS Glimepiride 4 Mg Tab 4 Mg PO BID Take with breakfast or first main meal Metformin (Metformin HCl) 500 Mg Tab 500 Mg PO DAILY With meals Metoprolol Tartrate 100 Mg Tab 100 Mg PO DAILY Ramipril 5 Mg Cap 5 Mg PO BID Cymbalta DR (Duloxetine HCl) 60 Mg Capdr 60 Mg PO DAILY Gabapentin 600 Mg Tab 600 Mg PO TAKE 5 TIMES DAILY Restasis Opth (Cyclosporine Opth) 0.05% Emul 1 Drop EACH EYE BID Review of Systems General / Constitutional: No: Fever Eyes: No: Visual changes HENT: Positive: Rhinorrhea, No: Headaches Cardiovascular: No: Chest Pain or Discomfort Respiratory: No: Shortness of Breath Gastrointestinal: No: Abdominal Pain Genitourinary: No: Dysuria Musculoskeletal: No: Pain Skin: No Rash Neurologic: No: Weakness Psychiatric: No: Depression Endocrine: No: Polydipsia Hematologic/Lymphatic: No: Easy Bruising Physical Exam Narrative GENERAL: Well-nourished, well-developed patient. SKIN: Focused skin assessment warm/dry. HEAD: Normocephalic. EYES: No scleral icterus. No injection or drainage. patient has yellow drainage from the right ear canal. Right Ear canal is inflame and completely closed. Unable to visualize right TM. Left ear canal without any drainage. NECK: Supple, trachea midline. No JVD or lymphadenopathy. CARDIOVASCULAR: Regular rate and rhythm without murmurs, gallops, or rubs. RESPIRATORY: Breath sounds equal bilaterally. No accessory muscle use. GASTROINTESTINAL: Abdomen soft, non-tender, nondistended. MUSCULOSKELETAL: No cyanosis, or edema. BACK: Nontender without obvious deformity. No CVA tenderness. Data Data Last Documented VS Vital Signs Date Time Temp Pulse Resp B/P (MAP) Pulse Ox O2 Delivery O2 Flow Rate FiO2 06/03/17 20:57 06/03/17 19:02 98.7 80 16 94 Room Air Orders Orders Ondansetron Inj (Zofran Inj) (06/03/17 20:15) Ed Discharge Order (06/03/17 20:20) [facility] Medical Decision Making Medical Screen Exam Complete: Yes Emergency Medical Condition: Yes Differential Diagnosis Differential diagnosis including otitis externa, otitis media, serous otitis media. Narrative Course 87-year-old female with drainage from the right ear canal. Patient has been treated with antibiotic for right ear infection. Patient has nausea with Levaquin. Patient started Levaquin yesterday. Patient has no other problem. Zofran 4 mg IV given. Ear wick applied to the right ear canal. Diagnosis Primary Impression: Right otitis externa Qualified Codes: H60.391 - Other infective otitis externa, right ear Additional Instructions: Continue with eardrops as directed. Stop Levaquin. Prescription for Augmentin as directed. Follow-up with ENT. Return if worse. Med/Other Pt SpecificInfo: Prescription(s) given, Med Stopped Scripts Ondansetron Odt (Zofran Odt) 4 Mg Tab 4 MG SL Q6HR Y for Nausea/Vomiting, #10 TAB 0 Refills Prov: Nacho May MD 06/03/17 Amoxicillin-Clavulanate (Augmentin) 875-125 Mg Tab 1 TAB PO BID for Infection, #20 TAB 0 Refills Prov: Nacho May MD 06/03/17 Disposition: 01 DISCHARGE HOME Condition: Stable Nacho May MD Jun 03, 2017 20:19
== END 2017-06-03 20:59 | disposition home or self-care (01) ==
LOC: NEPC 18:48
DX: H60.391 Other infective otitis externa, right ear (principal); E11.9 Type 2 diabetes mellitus without complications; E78.00 Pure hypercholesterolemia, unspecified; I10 Essential (primary) hypertension; I25.10 Atherosclerotic heart disease of native coronary artery without angina pectoris; J44.9 Chronic obstructive pulmonary disease, unspecified; G47.30 Sleep apnea, unspecified; K21.9 Gastro-esophageal reflux disease without esophagitis; Z79.4 Long term (current) use of insulin
CPT/HCPCS: 96374; 99284; J2405